=== PATIENT | male | born 1975 | race Caucasian/White ===

== ENCOUNTER → 2025-08-14 10:57 | Outpatient (REF) | payer BC, SELFPAY | LOC: PAVMRI 10:57 | PROVIDERS: ATTENDING PHYSICIAN Registered Nurse Critical Care Medicine; FAMILY PHYSICIAN Internal Medicine | DX: R42 Dizziness and giddiness (principal) | CPT/HCPCS: 70544; 70549; 70553; A9585 ==

== ENCOUNTER → 2025-09-29 06:49 | Outpatient (REF) | payer BC, SELFPAY | LOC: EMG 06:49 | PROVIDERS: ATTENDING PHYSICIAN Nurse Practitioner; FAMILY PHYSICIAN Internal Medicine | DX: R25.2 Cramp and spasm (principal); R20.0 Anesthesia of skin | CPT/HCPCS: 95886; 95911 ==